=== PATIENT | male | born 1950 | race Hispanic/Latino ===

== ENCOUNTER → 2019-02-10 | Outpatient (CLI) | payer MEDICARE | END | disposition home or self-care (01) | LOC: OIH 13:46 | PROVIDERS: ATTEND Internal Medicine | DX: M48.54XA Collapsed vertebra, not elsewhere classified, thoracic region, initial encounter for fracture (principal); M85.88 Other specified disorders of bone density and structure, other site; J45.998 Other asthma; M47.814 Spondylosis without myelopathy or radiculopathy, thoracic region | CPT/HCPCS: 71046 ==

== ENCOUNTER → 2019-04-29 | Outpatient (CLI) | payer MEDICARE | END | disposition home or self-care (01) | LOC: SHCH 14:09 | PROVIDERS: ATTEND Internal Medicine Cardiovascular Disease | DX: I73.9 Peripheral vascular disease, unspecified (principal); I87.2 Venous insufficiency (chronic) (peripheral) | CPT/HCPCS: 93925; 93970 ==

== ENCOUNTER → 2019-05-25 | Outpatient (CLI) | payer MEDICARE ==
[~2019-05-25] MED LIST: IOHEXOL 350 MG/ML 100ML INFUS..BTL IV ONE; IOHEXOL-350 50ML VIAL IV ONE
== END | disposition home or self-care (01) ==
LOC: RAH 08:04
PROVIDERS: ATTEND Internal Medicine Cardiovascular Disease
DX: I25.10 Atherosclerotic heart disease of native coronary artery without angina pectoris (principal); I73.9 Peripheral vascular disease, unspecified; I71.4 Abdominal aortic aneurysm, without rupture; Z90.49 Acquired absence of other specified parts of digestive tract
CPT/HCPCS: 75635; Q9967 ×2

== ENCOUNTER 2019-06-17 05:47 | Day surgery (SDC) | payer MEDICARE ==
[2019-06-16 10:21] VITALS: BP 117/54
[2019-06-16 10:27] LABS: BASOPHILS % (AUTO) 0.5 % (0.0-5.0); HEMATOCRIT 41.5 % (42-54); LYMPHOCYTES % (AUTO) 24.9 % (21.0-51.0); MEAN CORPUSCULAR HGB CONC 33.8 g/dL (32.0-36.0); MEAN CORPUSCULAR VOLUME 88.5 fL (79-99); MONOCYTES % (AUTO) 5.4 % (3.0-13.0); NEUTROPHILS % (AUTO) 64.2 % (40.0-77.0); NUCLEATED RED BLOOD CELLS 0.1 % (0.0-0.19); PLATELET COUNT (AUTO) 233 K/uL (130-400); RED BLOOD CELL COUNT(AUTO) 4.68 MIL/uL (4.50-6.20); RED CELL DISTRIBUTION WIDTH 14.1 % (11.0-15.5); WHITE BLOOD COUNT (AUTO) 7.1 K/uL (4.8-10.8)
[2019-06-16 10:33] LABS: APPEARANCE,URINE Clear (CLEAR); BILIRUBIN,URINE Negative (NEGATIVE); COLOR,URINE Dark Yellow (YELLOW); CREATININE 0.8 mg/dL (0.5-1.5); GLUCOSE, URINE (UA) Negative (NEGATIVE); KETONES,URINE Trace mg/dL (NEGATIVE); LEUKOCYTE ESTERASE ,URINE Trace (NEGATIVE); NITRATE,URINE Negative (NEGATIVE); OCCULT BLOOD,URINE Negative (NEGATIVE); PH,URINE 5.5 (5.0-8.0); POTASSIUM 4.2 mmol/L (3.5-5.1); PROTEIN,URINE Trace mg/dL (NEGATIVE)
[2019-06-16 10:39] LABS: INR 0.96 (0.85-1.15); PARTIAL THROMBOPLASTIN TIME 26.8 SEC (26.3-35.5); PROTHROMBIN TIME 10.1 SEC (9.6-11.6)
[2019-06-16 11:08] LABS: BACTERIA,URINE Rare /HPF (None Seen); RBC,URINE 0-1 /HPF (0-1); SQUAMOUS EPITHELIAL CELL,UR Rare /HPF (0-2); WBC,URINE 0-1 /HPF (0-1)
[~2019-06-17] VITALS: Ht 167.6 cm; Wt 83.7 kg
[2019-06-17] VITALS (10 sets, daily range): BP systolic 129–144; BP diastolic 58–68
[~2019-06-17 05:47] MED LIST changes: +AMLO-74 PO; +ASPI-555 PO; +ATEN50TA PO; +CLOP75TA32 PO; -IOHEXOL 350 MG/ML 100ML INFUS..BTL IV ONE; -IOHEXOL-350 50ML VIAL IV ONE; +METF-444 PO; +ROSU20TA31 PO
--- NOTE | 2019-06-17 06:10 | NUR ---
PATIENT ARRIVED PATIENT ARRIVED ON UNIT ACCOMPANIED BY SPOUSE (JUNI). PATIENT AAOX3, RESPIRATIONS UNLABORED, VITAL SIGNS STABLE, DENIES ANY PAIN AT THIS TIME. PATIENT INSTRUCTED TO CHANGE INTO GOWN. PROCEDURE AND PHYSICIAN VERIFIED AND CONFIRMED WITH PATIENT.
--- NOTE | 2019-06-17 07:25 | NUR ---
METFORMIN TAKEN CALLED GE MIN AND INFORMED HIM THAT PATIENT IS HAVING ABDOMINAL AORTOGRAM WITH BILATERAL RUNOFFS AND HE TOOK METFORMIN YESTERDAY MORNING. PER JULIA, OK TO PROCEED WITH SCHEDULED PROCEDURE. NO NEW ORDERS.
[2019-06-17] MEDS ORDERED: POTASSIUM CITRATE PO ×2 (07:53→07:57)
[2019-06-17] MEDS ORDERED: VITAMIN B-12 (07:53)
[2019-06-17] MEDS ORDERED: CLOP75TA32 PO (07:53)
[2019-06-17] MEDS ORDERED: FOLIC ACID PO (07:57)
[2019-06-17] MEDS ORDERED: VIT B PO (07:57)
[2019-06-17] MEDS ORDERED: SODIUM CHLORIDE 0.9% 1000ML 1,000 ML IV ONE (07:59)
[2019-06-17] MEDS ORDERED: NITROGLYCERIN 5 MG/ML 10 ML VIAL IV ONE (10:19)
[2019-06-17] MEDS ORDERED: HEPARIN SODIUM 1000UNIT/ML 10ML VIAL ONE (10:19)
[2019-06-17] MEDS ORDERED: LIDOCAINE HCL 2% 20ML ONE (10:19)
[2019-06-17] MEDS ORDERED: IODIXANOL 320 MG/ML 100 ML VIAL ONE (10:19)
--- NOTE | 2019-06-17 10:20 | NUR ---
PATIENT TRANSFERRED PATIENT TAKEN TO NNP VIA BED BY ALANIA MONROE. SPOUSE WAITING AT BEDSIDE AND INFORMED HER TO STAY IN ROOM TO WAIT FOR MD TO SPEAK WITH HER AFTER PROCEDURE IS DONE.
[2019-06-17] MEDS ORDERED: FENTANYL CITRATE PF 50 MCG/1 ML 2ML VIAL ONE (10:30)
[2019-06-17] MEDS ORDERED: MIDAZOLAM HCL 1 MG/ML 2ML VIAL ONE (10:30)
[2019-06-17] MEDS ORDERED: SODIUM CHLORIDE 0.9% 1000ML 1,000 ML IV SCH (11:10)
[2019-06-17] MEDS ORDERED: GLUCAGON 1MG KIT 1 MG ML IM PRN (11:15)
[2019-06-17] MEDS ORDERED: HYDRALAZINE HCL 20 MG/ML VIAL IV PRN (11:15)
[2019-06-17] MEDS ORDERED: METOPROLOL TARTRATE 1 MG/ML 5ML VIAL IV PRN (11:15)
[2019-06-17] MEDS ORDERED: NITROGLYCERIN 0.4 MG SL TAB SL PRN (11:15)
[2019-06-17] MEDS ORDERED: DEXTROSE 50%-WATER 50 ML DISP.SYRIN IV PRN (11:15)
[2019-06-17] MEDS ORDERED: INSULIN HUMULIN R 100 UNIT/ML 3ML SQ SCH (11:30)
--- NOTE | 2019-06-17 11:45 | NUR ---
PATIENT RETURNED PATIENT BROUGHT BACK FROM [facility] VIA BED BY ALAINA OVIEDO AND PRISCILLA PAULSON RN. PATIENT AAOX3, RESPIRATIONS UNLABORED. RIGHT FEMORAL SITE WITH DRESSING IN PLACE. DRESSING IS DRY AND INTACT, NO DRAINAGE NOTED. AREA IS SOFT AND NONTENDER. PEDAL PULSES PRESENT BILATERALLY WITH DOPPLER. PATIENT DENIES ANY PAIN AT THIS TIME. SIDERAILS UP X2, CALL LEO WITHIN REACH.
--- NOTE | 2019-06-17 13:40 | NUR ---
HANDOFF COMMUNICATION: REPORT GIVEN TO DOMENICO OSHEA RN NUSING SBAR. RIGHT FEMORAL SITE WITH DSTAT IN PLACE, DRESSING DRY AND INTACT. AREA IS SOFT AND NONTENDER. ALL QUESTIONS/CONCERNS ANSWERED. SPOUSE AT BEDSIDE.
== END 2019-06-17 17:02 | disposition home or self-care (01) ==
LOC: DAH 05:47
PROVIDERS: ATTEND Internal Medicine Cardiovascular Disease
DX: I70.213 Atherosclerosis of native arteries of extremities with intermittent claudication, bilateral legs (principal); I71.4 Abdominal aortic aneurysm, without rupture; I10 Essential (primary) hypertension; E11.51 Type 2 diabetes mellitus with diabetic peripheral angiopathy without gangrene; E78.5 Hyperlipidemia, unspecified; Z79.82 Long term (current) use of aspirin; Z79.899 Other long term (current) drug therapy; Z79.84 Long term (current) use of oral hypoglycemic drugs; Z90.49 Acquired absence of other specified parts of digestive tract; Z98.890 Other specified postprocedural states; Z87.891 Personal history of nicotine dependence; Z72.89 Other problems related to lifestyle; Z79.01 Long term (current) use of anticoagulants
CPT/HCPCS: 36200; 36415; 71045; 75630; 80048; 81001; 82948 ×2; 85025; 85610; 85730; 93005; A4606; C1769; C1894 ×2; J1644; J2250; J3010; J3490 ×2; J7030; Q9967; 75716; 99156; 99157

== ENCOUNTER → 2019-09-08 | Outpatient (CLI) | payer MEDICARE ==
[~2019-09-08] VITALS: Ht 167.6 cm; Wt 84.8 kg
[~2019-09-08] MED LIST changes: +FOLIC ACID PO; +POTASSIUM CITRATE PO; +REGADENOSON 0.4 MG/5 ML PF SYG IVP SCH; +VIT B PO
== END | disposition home or self-care (01) ==
LOC: SHCH 08:59
PROVIDERS: ATTEND Internal Medicine Cardiovascular Disease
DX: I25.89 Other forms of chronic ischemic heart disease (principal); I20.9 Angina pectoris, unspecified
CPT/HCPCS: 78452; 93017; 96374; A9500 ×2; J2785

== ENCOUNTER 2019-10-01 08:38 | Day surgery (SDC) | payer MEDICARE ==
[2019-09-29 11:04] VITALS: BP 137/64
[2019-09-29 11:16] LABS: APPEARANCE,URINE Clear (CLEAR); BASOPHILS % (AUTO) 0.5 % (0.0-5.0); BILIRUBIN,URINE Negative (NEGATIVE); COLOR,URINE Yellow (YELLOW); EOSINOPHILS % (AUTO) 4.2 % (0.0-8.0); GLUCOSE, URINE (UA) 500 mg/dL (NEGATIVE); HEMATOCRIT 41.8 % (42-54); KETONES,URINE Negative (NEGATIVE); LEUKOCYTE ESTERASE ,URINE Negative (NEGATIVE); LYMPHOCYTES % (AUTO) 23.4 % (21.0-51.0); MEAN CORPUSCULAR HEMOGLOBIN 29.4 pg (27.0-33.0); MEAN CORPUSCULAR HGB CONC 33.4 g/dL (32.0-36.0); NEUTROPHILS % (AUTO) 66.9 % (40.0-77.0); NITRATE,URINE Negative (NEGATIVE); OCCULT BLOOD,URINE Negative (NEGATIVE); PLATELET COUNT (AUTO) 231 K/uL (130-400); PROTEIN,URINE Negative (NEGATIVE); RED BLOOD CELL COUNT(AUTO) 4.75 MIL/uL (4.50-6.20); RED CELL DISTRIBUTION WIDTH 13.8 % (11.0-15.5); WHITE BLOOD COUNT (AUTO) 6.7 K/uL (4.8-10.8)
[2019-09-29 11:25] LABS: CREATININE 0.7 mg/dL (0.5-1.5)
[2019-09-29 11:38] LABS: INR 0.99 (0.85-1.15); PARTIAL THROMBOPLASTIN TIME 24.5 SEC (26.3-35.5); PROTHROMBIN TIME 10.2 SEC (9.6-11.6)
[2019-09-29 11:48] LABS: BACTERIA,URINE None Seen /HPF (None Seen); RBC,URINE 0-1 /HPF (0-1); SQUAMOUS EPITHELIAL CELL,UR 0-2 /HPF (0-2); WBC,URINE 0-1 /HPF (0-1)
[2019-10-01] VITALS (9 sets, daily range): BP systolic 116–149; BP diastolic 55–80
[~2019-10-01] VITALS: Ht 167.6 cm; Wt 85.0 kg
[~2019-10-01 08:38] MED LIST changes: -FOLIC ACID PO; -POTASSIUM CITRATE PO; -REGADENOSON 0.4 MG/5 ML PF SYG IVP SCH; +SODIUM CHLORIDE 0.9% 500ML 500 ML IV SCH; -VIT B PO
[2019-10-01] MEDS ORDERED: SODIUM CHLORIDE 0.9% 1000ML 1,000 ML IV ONE (10:02)
[2019-10-01] MEDS ORDERED: HEPARIN SODIUM 1000UNIT/ML 10ML VIAL ONE (13:23)
[2019-10-01] MEDS ORDERED: NITROGLYCERIN 5 MG/ML 10 ML VIAL IV ONE (13:23)
[2019-10-01] MEDS ORDERED: IODIXANOL 320 MG/ML 100 ML VIAL ONE (13:23)
[2019-10-01] MEDS ORDERED: LIDOCAINE HCL 2% 20ML ONE (13:24)
[2019-10-01] MEDS ORDERED: MIDAZOLAM HCL 1 MG/ML 2ML VIAL ONE (13:24)
[2019-10-01] MEDS ORDERED: FENTANYL CITRATE PF 50 MCG/1 ML 2ML VIAL ONE (13:24)
[2019-10-01] MEDS ORDERED: SODIUM CHLORIDE 0.9% 1000ML 1,000 ML IV SCH (15:01)
[2019-10-01] MEDS ORDERED: NITROGLYCERIN 0.4 MG SL TAB SL PRN (15:15)
[2019-10-01] MEDS ORDERED: DEXTROSE 50%-WATER 50 ML DISP.SYRIN IV PRN (15:15)
[2019-10-01] MEDS ORDERED: GLUCAGON 1MG KIT 1 MG ML IM PRN (15:15)
[2019-10-01] MEDS ORDERED: METOPROLOL TARTRATE 1 MG/ML 5ML VIAL IV PRN (15:15)
[2019-10-01] MEDS ORDERED: INSULIN HUMULIN R 100 UNIT/ML 3ML SQ SCH (16:30)
== END 2019-10-01 18:10 | disposition home or self-care (01) ==
LOC: DAH 08:38
PROVIDERS: ATTEND Internal Medicine Cardiovascular Disease
DX: I70.211 Atherosclerosis of native arteries of extremities with intermittent claudication, right leg (principal); I10 Essential (primary) hypertension; E78.5 Hyperlipidemia, unspecified; E11.9 Type 2 diabetes mellitus without complications; Z79.82 Long term (current) use of aspirin; Z79.899 Other long term (current) drug therapy; Z98.890 Other specified postprocedural states; Z90.49 Acquired absence of other specified parts of digestive tract; Z87.891 Personal history of nicotine dependence; Z72.89 Other problems related to lifestyle; Z79.01 Long term (current) use of anticoagulants
CPT/HCPCS: 36140; 36415; 75710; 80048; 81001; 82948 ×2; 85025; 85610; 85730; A4215; A4216; A4221; A4222; A4223 ×3; A4606; A4663; A6260; C1769 ×2; C1894 ×2; J1644 ×2; J2250; J3010; J3490 ×2; J7030; Q9967; 36005; 37224; 99156; 99157

== ENCOUNTER → 2019-11-06 | Outpatient (CLI) | payer MEDICARE ==
[~2019-11-06] MED LIST changes: -SODIUM CHLORIDE 0.9% 500ML 500 ML IV SCH
== END | disposition home or self-care (01) ==
LOC: RAH 09:47
PROVIDERS: ATTEND Internal Medicine
DX: R91.8 Other nonspecific abnormal finding of lung field (principal); J20.9 Acute bronchitis, unspecified
CPT/HCPCS: 71046

== ENCOUNTER → 2020-01-26 | Outpatient (CLI) | payer OTHER | END | disposition home or self-care (01) | LOC: OIH 16:02 | PROVIDERS: ATTEND Internal Medicine | DX: S93.602A Unspecified sprain of left foot, initial encounter (principal); M19.072 Primary osteoarthritis, left ankle and foot; M79.89 Other specified soft tissue disorders; X58.XXXA Exposure to other specified factors, initial encounter; Y93.89 Activity, other specified; Y92.89 Other specified places as the place of occurrence of the external cause; Y99.8 Other external cause status | CPT/HCPCS: 73620 ==

== ENCOUNTER → 2021-03-20 | Emergency (ER) | payer OTHER ==
[~2021-03-20] MED LIST changes: -ASPI-555 PO; +ASPI-556 PO
[2021-03-20 23:52] LABS: BASOPHILS % (AUTO) 0.5 % (0.0-5.0); LYMPHOCYTES % (AUTO) 25.3 % (21.0-51.0); MEAN CORPUSCULAR HEMOGLOBIN 28.5 pg (27.0-33.0); MEAN CORPUSCULAR HGB CONC 32.8 g/dL (32.0-36.0); MONOCYTES % (AUTO) 6.3 % (3.0-13.0); NEUTROPHILS % (AUTO) 67.5 % (40.0-77.0); PLATELET COUNT (AUTO) 247 K/uL (130-400); RED CELL DISTRIBUTION WIDTH 13.5 % (11.0-15.5); WHITE BLOOD COUNT (AUTO) 7.6 K/uL (4.8-10.8)
[2021-03-21] LABS: CREATININE 0.9 mg/dL (0.5-1.5); POTASSIUM 3.5 mmol/L (3.5-5.1)
[2021-03-21 00:05] LABS: ALBUMIN 4.1 g/dL (3.5-5.0); BILIRUBIN,TOTAL 0.2 mg/dL (0.2-1.0); TOTAL PROTEIN, SERUM 7.5 g/dL (6.0-8.3)
[2021-03-21 00:12] LABS: INR 0.98 (0.85-1.15); PROTHROMBIN TIME 10.7 SEC (9.6-11.6)
[2021-03-21 00:13] LABS: PARTIAL THROMBOPLASTIN TIME 24.2 SEC (26.3-35.5)
[2021-03-21 00:30] LABS: B-TYPE NATRIURETIC PEPTIDE 27 pg/mL (0-100)
== END ==
LOC: EDH 22:59
DX: R00.2 Palpitations (principal); E78.5 Hyperlipidemia, unspecified; I10 Essential (primary) hypertension; Z90.49 Acquired absence of other specified parts of digestive tract; Z87.891 Personal history of nicotine dependence
CPT/HCPCS: 36415; 71045; 80053; 82550; 83880; 84484; 85025; 85610; 85730; 93005

== ENCOUNTER → 2021-06-14 | Outpatient (CLI) | payer OTHER | END | disposition home or self-care (01) | LOC: SHCH 15:17 | PROVIDERS: ATTEND Internal Medicine Cardiovascular Disease | DX: R00.2 Palpitations (principal); E11.9 Type 2 diabetes mellitus without complications; R55 Syncope and collapse | CPT/HCPCS: 93306; 93356 ==

== ENCOUNTER → 2022-01-16 | Outpatient (CLI) | payer OTHER | END | disposition home or self-care (01) | LOC: SHCH 12:36 | PROVIDERS: ATTEND Internal Medicine Cardiovascular Disease | DX: I70.203 Unspecified atherosclerosis of native arteries of extremities, bilateral legs (principal); I87.2 Venous insufficiency (chronic) (peripheral) | CPT/HCPCS: 93925; 93970 ==

== ENCOUNTER → 2025-04-27 | Outpatient (CLI) | payer OTHER ==
[~2025-04-27] MED LIST changes: -ROSU20TA31 PO; +ROSU20TA98 PO
[2025-04-27] MEDS: REGADENOSON 0.4 MG/5 ML PF SYG IVP ONE (15:14)
== END | disposition home or self-care (01) ==
LOC: SHCH 07:32
PROVIDERS: ATTEND Internal Medicine Cardiovascular Disease
DX: I20.9 Angina pectoris, unspecified (principal); R06.09 Other forms of dyspnea
CPT/HCPCS: 78452; 93017; J2785; A9500 ×2